=== PATIENT | female | born 1970 | race Caucasian/White ===

== ENCOUNTER 2022-11-21 15:16 | Emergency (ER) | payer OTHER ==
[~2022-11-21] VITALS: Ht 170.2 cm; Wt 88.5 kg
[2022-11-21] MEDS ORDERED: ONDANSETRON 4 MG/2 ML VIAL IV PRN (15:45)
[2022-11-21] MEDS ORDERED: MAGNESIUM HYDROXIDE 30 ML LIQUID UDC PO PRN (15:45)
[2022-11-21] MEDS ORDERED: IV NS 1000 ML 1,000 ML IV PRN (15:45)
[2022-11-21] MEDS ORDERED: ACETAMINOPHEN 325 MG TABLET PO PRN (15:45)
[2022-11-21] MEDS ORDERED: REMEDY ESSENTIAL ZINC PASTE 113 GM TP PRN (15:45)
--- NOTE | 2022-11-21 15:51 | NUR ---
Patient refusing EKG.
--- NOTE | 2022-11-21 16:22 | NUR ---
Dr. Glass and Dr. Márquez aware patient is refusing all treatment. Per Dr. Márquez, patient is still to be admitted to Med/Surg and to have a psych evaluation.
--- NOTE | 2022-11-21 17:39 | NUR ---
[facility] to pick up worker patient around [phone].
--- NOTE | 2022-11-21 18:51 | NUR ---
Patient picked up by ambulance to be transported back to facility. Patient discharged in stable condition. Written and verbal after care instructions given. Patient verbalizes understanding of instructions. Stressed follow up or return to ER for worsening s/s.
[2022-11-21 18:53] VITALS: BP 120/72
== END 2022-11-21 18:53 ==
LOC: ER 15:16
DX: R45.1 Restlessness and agitation (principal); J44.9 Chronic obstructive pulmonary disease, unspecified; I12.9 Hypertensive chronic kidney disease with stage 1 through stage 4 chronic kidney disease, or unspecified chronic kidney disease; N18.9 Chronic kidney disease, unspecified; M19.90 Unspecified osteoarthritis, unspecified site
CPT/HCPCS: 93005; A4663